=== PATIENT | female | born 1975 | race Hispanic/Latino ===

== ENCOUNTER 2017-12-22 12:08 | Outpatient (CLI) | payer BC | END 2017-12-22 21:23 | disposition home or self-care (01) | LOC: INF 12:08 | DX: E86.0 Dehydration (principal) | CPT/HCPCS: 96360; 96361 ==

== ENCOUNTER 2020-04-23 12:57 | Outpatient (CLI) | payer OTHER | END 2020-04-23 23:16 | disposition home or self-care (01) | LOC: LAB 12:57 | PROVIDERS: ATTEND Family Medicine | DX: Z20.828 Contact with and (suspected) exposure to other viral communicable diseases (principal) | CPT/HCPCS: 87635; G2023; U0003 ==